=== PATIENT | male | born 2000 | race African-American/Black ===

== ENCOUNTER 2020-11-19 11:08 | Emergency (ER) | payer MEDICAID, OTHER ==
[~2020-11-19] VITALS: Ht 180.3 cm; Wt 92.5 kg
[2020-11-19 11:36] VITALS: BP 110/61
== END 2020-11-19 14:42 | disposition home or self-care (01) ==
LOC: ER 11:08
DX: S09.8XXA Other specified injuries of head, initial encounter (principal); F07.81 Postconcussional syndrome; X58.XXXA Exposure to other specified factors, initial encounter; Y93.89 Activity, other specified; Y92.89 Other specified places as the place of occurrence of the external cause; Y99.8 Other external cause status
CPT/HCPCS: 70450